=== PATIENT | female | born 1995 | race African-American/Black ===

== ENCOUNTER 2016-05-22 23:56 | Emergency (ER) | payer OTHER ==
[~2016-05-22 23:56] MED LIST: MACR100C PO
== END 2016-05-23 00:15 | disposition left against medical advice (07) ==
LOC: HOBED 23:56
DX: O26.893 Other specified pregnancy related conditions, third trimester (principal); R10.2 Pelvic and perineal pain; M54.9 Dorsalgia, unspecified; Z3A.37 37 weeks gestation of pregnancy; Z53.21 Procedure and treatment not carried out due to patient leaving prior to being seen by health care provider
CPT/HCPCS: 99281

== ENCOUNTER 2016-07-04 19:22 | Emergency (ER) | payer MEDICAID, OTHER ==
[~2016-07-04] VITALS: Ht 154.9 cm; Wt 75.0 kg
[2016-07-04 19:47] VITALS: BP 119/75; PULSE 92; RESP 18; TEMP 99.6; O2SAT 99
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
[2016-07-04 20:18] LABS: AUTOMATED NEUTROPHIL # 5.3 TH/MM3 (1.8-7.7); BASOPHIL % 0.5 % (0.0-2.0); EOSINOPHIL % 0.1 % (0.0-4.0); HEMATOCRIT 35.3 % (35.0-46.0); LYMPH % 25.5 % (9.0-44.0); MEAN CELL VOLUME 78.1 FL (80.0-100.0); MEAN CORPUSCULAR HEMOGLOBIN 24.7 PG (27.0-34.0); MEAN CORPUSCULAR HGB CONC 31.6 % (32.0-36.0); MONO % 7.3 % (0.0-8.0); NEUT % 66.6 % (16.0-70.0); PLATELET COUNT 206 TH/MM3 (150-450); RED BLOOD COUNT 4.51 MIL/MM3 (4.00-5.30); RED CELL DISTRIBUTION WIDTH 20.1 % (11.6-17.2)
[2016-07-04 20:20] LABS: HEMO FLAGS AUTO DIFF
[2016-07-04 20:32] LABS: ANION GAP 8 MEQ/L (5-15); AST (GOT) 22 U/L (15-37); BLOOD UREA NITROGEN 9 MG/DL (7-18); CHLORIDE 108 MEQ/L (98-107); GLOMERULAR FILTRATION RATE 89 ML/MIN (>89); POTASSIUM 3.5 MEQ/L (3.5-5.1); SODIUM (NA) 141 MEQ/L (136-145)
[2016-07-04 20:40] LABS: ACETAMINOPHEN LESS THAN 2.0 MCG/ML (10.0-30.0); ALKALINE PHOSPHATASE 65 U/L (45-117); ALT (GPT) 22 U/L (10-53); TOTAL BILIRUBIN ADULT 0.3 MG/DL (0.2-1.0)
[2016-07-04 21:31] LABS: SCAN/DIFF AUTO DIFF CONFIRMED
[2016-07-04 22:15] LABS: BETA HCG QUANT LESS THAN 1 MIU/ML (0-5)
[2016-07-04 22:32] VITALS: BP 121/59; PULSE 86; RESP 16; O2SAT 100
[2016-07-05 02:00] VITALS: BP 106/58; PULSE 73; RESP 18; O2SAT 99
[2016-07-05 06:17] VITALS: BP 111/71; PULSE 65; RESP 19; O2SAT 98
[2016-07-05 06:47] LABS: AMPHETAMINE, URINE NEG (NEG); BARBITURATES, URINE NEG (NEG); COCAINE, URINE NEG (NEG)
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
== END 2016-07-05 12:14 | disposition home or self-care (01) ==
LOC: NEDAMB 19:22 → NEPJ 07-05 12:14
DX: F39 Unspecified mood [affective] disorder (principal); F43.25 Adjustment disorder with mixed disturbance of emotions and conduct; Z87.09 Personal history of other diseases of the respiratory system; Z86.59 Personal history of other mental and behavioral disorders; Z86.69 Personal history of other diseases of the nervous system and sense organs
CPT/HCPCS: 80053; 80307; 84702; 85025; 99284

== ENCOUNTER 2017-07-13 19:27 | Emergency (ER) | payer MEDICAID, OTHER ==
[~2017-07-13] VITALS: Ht 152.4 cm; Wt 80.0 kg
[~2017-07-13 19:27] MED LIST changes: -MACR100C PO; +MACR100C2 PO; +PHEN0.4T PO
[2017-07-13 19:59] VITALS: BP 107/71; PULSE 89; RESP 16; TEMP 99.2; O2SAT 100
[2017-07-13 20:50] LABS: BILIRUBIN, URINE NEG (NEG); BLOOD, URINE NEG (NEG); GLUCOSE,URINE NEG (NEG); KETONE, URINE NEG (NEG); MUCUS URINE MOD /lpf (OCC); NITRITE,URINE NEG (NEG); SQUAMOUS EPITHELIAL CELL URINE 4 /hpf (0-5); URINE COLOR YELLOW (YELLW/STRAW); URINE LEUKOCYTE ESTERASE MOD (NEG)
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
[2017-07-13] MEDS ORDERED: metroNIDAZOLE 500 MG TAB PO ONE (21:15)
[2017-07-13] MEDS ORDERED: cefTRIAXone 250 MG VIAL IM ONE (21:15)
[2017-07-13] MEDS ORDERED: AZITHROMYCIN PWD FOR SUSP 1 GM PACKET PO ONE (21:15)
[2017-07-13] MEDS ORDERED: METR250T23 PO (21:20)
[2017-07-13] MEDS ORDERED: TRICTAB PO (21:21)
[2017-07-13] MEDS ORDERED: LIDOCAINE HCL 1% 50 ML VIAL IM ONE (21:30)
[2017-07-13] MEDS ORDERED: LIDOCAINE HCL 1% 20 ML VIAL ONE (21:32)
== END 2017-07-13 22:02 | disposition home or self-care (01) ==
LOC: NEPD 19:27
DX: O26.891 Other specified pregnancy related conditions, first trimester (principal); O99.511 Diseases of the respiratory system complicating pregnancy, first trimester; Z20.2 Contact with and (suspected) exposure to infections with a predominantly sexual mode of transmission; Z88.0 Allergy status to penicillin; Z3A.01 Less than 8 weeks gestation of pregnancy
CPT/HCPCS: 81001; 96372; 99283; J0696

== ENCOUNTER 2017-07-18 19:21 | Emergency (ER) | payer MEDICAID ==
[~2017-07-18 19:21] MED LIST changes: -MACR100C2 PO; +METR250T23 PO; -PHEN0.4T PO; +TRICTAB PO
[2017-07-18 19:29] VITALS: BP 116/65; PULSE 89; RESP 16; TEMP 98.5; O2SAT 100
== END 2017-07-18 21:25 | disposition left against medical advice (07) ==
LOC: NED 19:21
DX: R10.9 Unspecified abdominal pain (principal)
CPT/HCPCS: 99281